=== PATIENT | male | born 1985 | race Caucasian/White ===

== ENCOUNTER 2021-08-04 12:16 | Emergency (ER) | payer OTHER, SELFPAY ==
--- NOTE | 2021-08-04 12:20 | ED.URI ---
HPI - URI/Sore Throat General Chief Complaint: Upper Respiratory Infection Stated Complaint: sore throat/fatigue/nasal congestion/cough Time Seen by Provider: 08/04/21 12:20 Source: patient and RN notes reviewed History of Present Illness HPI Narrative: Patient is a 36-year-old male who presents the urgent care with complaints of sore throat, fatigue, nasal congestion and cough. Patient states that started approximately 2 to 3 days ago and he has been taking ibuprofen for his symptoms. Patient states his daughter is also been symptomatic over the last couple days and is following up with her frame stripper today. Patient has been vaccinated for Covid and denies of any known exposures. Denies any fever, chills, nausea, vomiting. No other acute complaints. No acute distress noted. Patient aware of the plan of care. Some parts of this dictation were generated by voice recognition software and may contain typographical and/or grammatical inaccuracies. Related Data Allergies Allergy/AdvReac Type Severity Reaction Status Date / Time No Known Allergies Allergy Mild Verified 05/08/21 11:32 citalopram Allergy Unknown decrease Verified 05/08/21 11:32 energy/motivation Review of Systems Review of Systems: CONSTITUTIONAL: Denies fever, chills, or sweats. Reports of fatigue EYES: Denies visual changes, redness, or discharge. ENT: Reports of nasal congestion, sore throat CARDIOVASCULAR: Denies chest pain, palpitations, or edema. RESPIRATORY: Reports of dry cough without dyspnea GASTROINTESTINAL: Denies abdominal pain, nausea, vomiting, or diarrhea. GENITOURINARY: Denies dysuria or hematuria. SKIN: Denies rash or itching. MUSCULOSKELETAL: Denies back pain, joint pain, or myalgia. NEUROLOGIC: Denies headache, numbness, or weakness. All other systems reviewed are negative, except as documented in HPI. PMFSH Social History Social History Smoking status: Never smoker Alcohol intake: current Comments At the time of my signature, I reviewed and agree with the nursing past medical, surgical, social, and family history. There is no relevant family history pertinent to the patient complaint. Exam Narrative: GENERAL: This is a well-nourished, well-developed patient, in no apparent distress. HEAD: normocephalic, atraumatic. EYES: PERRL. Sclera clear/white. Vision is grossly intact. EARS: External ears normal, auditory canals clear and without drainage, TMs normal without perforation. Hearing grossly intact. NOSE: External nose normal with no obvious nasal discharge, nares without redness, clear rhinorrhea. THROAT: Mucous membranes moist, mild erythema noted posterior oropharynx without exudate or ulceration. Moderate postnasal drainage. NECK: Neck supple, non-tender without lymphadenopathy CARDIOVASCULAR: Regular rate and rhythm without murmurs, gallops, or rubs. RESPIRATORY: Clear to auscultation. Breath sounds equal bilaterally. No wheezes, rales, or rhonchi. SKIN: warm, intact with no suspicious lesions or rash, good texture and turgor. NEURO: awake, alert, and oriented to person, place and time. There were no obvious focal neurologic abnormalities. EXTREMITIES: No clubbing, cyanosis, or edema. Course Vital Signs Vital signs: Vital Signs Temperature 97.7 F 08/04/21 12:26 Pulse Rate 75 08/04/21 12:26 Respiratory Rate 16 08/04/21 12:26 Blood Pressure 128/77 08/04/21 12:26 Pulse Oximetry 100 08/04/21 12:26 Temperature 97.7 F 08/04/21 12:26 Pulse Rate 75 08/04/21 12:26 Respiratory Rate 16 08/04/21 12:26 Blood Pressure 128/77 08/04/21 12:26 Pulse Oximetry 100 08/04/21 12:26 Reviewed MDM - URI/Sore Throat MDM Narrative Medical decision making narrative: Reviewed lab results with the patient. He is aware that strep swab was negative. Educated patient on culture and we will call within 72 hours if culture is positive and antibiotics are neces
[2021-08-04 12:26] VITALS: BP 128/77; PULSE 75; RESP 16; TEMP 36.5; O2SAT 100
== END 2021-08-04 12:54 | disposition home or self-care (01) ==
PROVIDERS: Emergency Provider Nurse Practitioner Family; PCP Family Medicine
DX: J06.9 Acute upper respiratory infection, unspecified (principal); Z20.822 Contact with and (suspected) exposure to COVID-19
CPT/HCPCS: 87081; 87880; 99213; G0463

== ENCOUNTER → 2021-08-05 04:47 | Outpatient (CLI) | payer OTHER, SELFPAY ==
[2021-08-06 01:26] LABS: SARS-CoV-2 RNA PCR Negative
== END ==
PROVIDERS: PCP Family Medicine; Visit Provider Nurse Practitioner Family
DX: J06.9 Acute upper respiratory infection, unspecified (principal); Z20.822 Contact with and (suspected) exposure to COVID-19
CPT/HCPCS: C9803; U0003; U0005

== ENCOUNTER → 2021-08-16 01:12 | Outpatient (CLI) | payer OTHER, SELFPAY ==
[2021-08-16 18:06] LABS: SARS-CoV-2 RNA PCR Negative
== END ==
PROVIDERS: PCP Family Medicine; Visit Provider Physician Assistant
DX: R68.89 Other general symptoms and signs (principal); Z20.822 Contact with and (suspected) exposure to COVID-19
CPT/HCPCS: C9803; U0003; U0005

== ENCOUNTER → 2021-10-10 10:54 | Outpatient (CLI) | payer OTHER, SELFPAY ==
--- NOTE | ~2021-10-10 | XR_ITS ---
EXAMINATION: XR thoracic spine 3V DATE: 10/10/2021 12:09 INDICATION: Dorsalgia, unspecified. TECHNIQUE: 3 views of thoracic spine standing were obtained. COMPARISON: None. FINDINGS: Bone alignment is normal. Vertebral body heights are normal. Intervertebral disc heights ar e normal. There are endplate osteophytes at multiple levels. IMPRESSION: 1. Mild thoracic spondylosis. Reviewed, dictated and finalized at location A. [employer]
--- NOTE | ~2021-10-10 | XR_ITS ---
XR lumbar spine 2-3V 10/10/2021 12:09 Indication: Back pain. Procedure: 3 views lumbar spine Comparison: No prior studies for comparison. Findings: No fracture, subluxation or dislocation. Mild levocurvature of the lumbar spine. Pedicles i ntact. Sacral foramen are symmetric. No evidence for spondylolisthesis. Impression: 1: Mild levocurvature of the lumbar spine. Reviewed, dictated and finalized at location A. [employer]CH[employer]ICIAN Impression: 1: Mild levocurvature of the lumbar spine.
== END ==
PROVIDERS: PCP Family Medicine; Visit Provider Physician Assistant
DX: M54.9 Dorsalgia, unspecified (principal); M47.894 Other spondylosis, thoracic region
CPT/HCPCS: 72072; 72100

== ENCOUNTER 2022-06-18 11:26 | Emergency (ER) | payer OTHER, SELFPAY ==
--- NOTE | ~2022-06-18 | XR_ITS ---
EXAMINATION: XR knee LT min 4V DATE: 06/18/2022 11:56 INDICATION: Left knee injury and pain. TECHNIQUE: 4 views of left knee were obtained. COMPARISON: None. FINDINGS: Bone alignment is normal. No fracture. There is mild osteoarthritis of patellofemoral naomi rtment characterized by a tiny marginal osteophyte. No knee joint effusion. IMPRESSION: 1. Mild left knee osteoarthritis. Reviewed, dictated and finalized at location A.
--- NOTE | 2022-06-18 11:29 | ED.LOWEXIN ---
HPI - Extremity Injury (Lower) General Stated Complaint: xray lt knee Time Seen by Provider: 06/18/22 11:59 Source: patient and RN notes reviewed Mode of arrival: ambulatory Limitations: no limitations History of Present Illness HPI Narrative: 37-year-old male presents with concern for left knee pain. He reports approximately 3 weeks ago he was playing softball when he fell and landed on the front of the knee on a hard surface. [place] to see a doctor there, but did not have an x-ray, and since then has been using naproxen. He reports sharp pain when he kneels on the knee. He reports throughout the day the knee continues to get swollen. He reports weightbearing does not necessarily increase the pain. MD complaint: knee injury Related Data Home Medications Medication Instructions Recorded Confirmed acetaminophen 500 mg tablet 500 mg PO Q6H PRN Pain 06/18/22 06/18/22 (Tylenol Extra Strength) naproxen 500 mg tablet 500 mg PO BID 06/18/22 06/18/22 Allergies Allergy/AdvReac Type Severity Reaction Status Date / Time citalopram Allergy Unknown decrease Verified 06/18/22 11:34 energy/motivation Review of Systems Review of Systems: CONSTITUTIONAL: Denies malaise, chills, sweats, or fever. SKIN: Denies rash or itching, open skin, laceration, abrasion, redness, warmth MUSCULOSKELETAL: Reports left knee pain and swelling that worsens throughout the day NEUROLOGIC: Denies numbness, weakness All systems reviewed & are unremarkable except as noted in HPI and below PMFSH Social History Social History Smoking status: Never smoker Alcohol intake: current Comments At time of signature, agree with nursing past medical, surgical, social and family history. There is no relevant family history pertinent to the presenting complaint Exam Narrative: GENERAL: Well-appearing, well-nourished, and in no acute distress. HEAD: Normocephalic, atraumatic. EYES: PERRLA, conjunctivae clear NECK: Supple. CHEST: Speaks in full sentences. No respiratory distress. HEART: Regular rate and rhythm. Normal and equal peripheral pulses. EXTREMITIES: Left knee has normal strength and sensation, grossly normal range of motion. Very mild anterior edema, no erythema, warmth, or ecchymosis. 5/5 strength with knee flexion and extension. Normal sensation with sensitivity to light touch and pain. Anterior tenderness. No open wounds, no skin tenting, no devitalized tissue or atrophy, no trophic changes, no obvious deformity, alignment normal, nearby joints and structures intact. Distal pulses palpable and equal bilaterally, skin warm, dry, pink. Capillary refill less than 3 seconds. Lever test negative SKIN: Warm, dry, no rash. NEURO: Alert and oriented x3. PSYCH: Normal mood and affect Course Course Emergency Course: Patient is aware of diagnosis, understands and agrees to treatment plan. Anticipatory guidance given. Patient agrees to follow-up as directed and is aware of reasons to seek care at the emergency department. Portions of this record may have been created with voice recognition software Level of Care: Express Care Visit Vital Signs Vital signs: Reviewed. MDM - Extremity Injury (Lower) MDM Narrative Medical decision making narrative: Patients injury and pain is consistent with musculoskeletal etiology. No signs of neurological or vascular compromise on exam. Compartments and tissues are soft without signs of compartment syndrome. Pain is felt appropriate for further evaluation on an outpatient basis. Imaging Data My impression: Images reviewed, interpreted by radiologist, agree, see report. Radiologist's impression: EXAMINATION: XR knee LT min 4V DATE: 06/18/2022 11:56 INDICATION: Left knee injury and pain. TECHNIQUE: 4 views of left knee were obtained. COMPARISON: None. FINDINGS: Bone alignment is normal. No fracture. There i
[2022-06-18 11:36] VITALS: BP 122/73; PULSE 64; RESP 20; TEMP 37.1; O2SAT 99
== END 2022-06-18 12:27 | disposition home or self-care (01) ==
PROVIDERS: Emergency Provider Nurse Practitioner
DX: S89.92XA Unspecified injury of left lower leg, initial encounter (principal); W19.XXXA Unspecified fall, initial encounter; Y93.64 Activity, baseball
CPT/HCPCS: 73564; 99213; G0463

== ENCOUNTER 2025-06-01 08:21 | Outpatient (CLI) | payer OTHER, SELFPAY ==
--- OUTSIDE RECORDS SUMMARY | 2025-06-01 08:23 | XMS_ITS | Clinical Summary ---
Author Organization [facility] Address [address] [place] [address] Care Team Providers Care Identification Officer Name Role Phone No, Physician Primary Care Provider [phone] Allergies No known active allergies Social History Tobacco Use Types Packs/Day Years Used Date Smoking Tobacco: Never Assessed Personal Safety Answer Date Recorded Have you ever been in or are you currently in a harmful physical or emotional relationship or is someone making you feel afraid or unsafe? Denies 01/26/2025 Sex and Gender Information Value Date Recorded Sex Assigned at Not on file Legal Sex Male 10:59 AM CDT Gender Identity Not on file Sexual Orientation Not on file Last Filed Vital Signs Vital Sign Reading Time Taken Comments Blood Pressure 122/63 01/27/2025 1:00 AM CDT Pulse 65 01/27/2025 1:00 AM CDT Temperature 37.1 C (98.7 F) 01/26/2025 11:46 PM CDT Respiratory Rate 22 01/26/2025 9:06 PM CDT Oxygen Saturation 96% 01/27/2025 1:00 AM CDT Inhaled Oxygen Concentration - - Weight 102.1 kg (225 lb) 01/26/2025 9:06 PM CDT Height 188 cm (6' 2) 01/26/2025 9:06 PM CDT Body Mass Index 28.89 01/26/2025 9:06 PM CDT Plan of Treatment Health Maintenance Due Date Last Done Comments Depression Screening 1986 Hepatitis C Screening 1986 Varicella Vaccines (1 of 2 - 13+ 2-dose series) 1999 Hepatitis B Screening 2004 Regular Well Visit/Exam 18-64 2004 HPV Vaccines (1 - 3-dose SCD M series) 2013 Influenza Vaccine (#1) 2025 DTaP/Tdap/Td Vaccine (2 - Td or Tdap) 02/23/2027 02/23/2017, 05/05/2000 Pneumococcal vaccine <65 Aged Out No longer eligible based on patient's age to complete this topic Insurance WORKERS COMPENSATION GENERIC WORK[employer] GENERIC Care Teams Identification Officer Relationship Specialty Start Date End Date No, Physician PCP - General 01/27/25
--- OUTSIDE RECORDS SUMMARY | 2025-06-01 08:23 | XMS_ITS | Referral Summary ---
Author Organization [facility] Address [address] [place] [address] Care Team Providers Care Web Assistant Name Role Phone No, Physician Primary Care Provider [phone] Allergies No known active allergies Social History [...] 01/26/2025 9:06 PM CDT Plan of Treatment Not on file Insurance WORKERS COMPENSATION GENERIC * Guarantor: [facility] Account Type Relation to Patient Date of Phone Billing Address Workers Comp 1985 [address] [place] [address] WORKERS COMPENSATION GENERIC Care Teams Web Assistant Relationship Specialty Start Date End Date No, Physician PCP - General 01/27/25
--- OUTSIDE RECORDS SUMMARY | 2025-06-01 08:23 | XMS_ITS | Continuity of Care Document ---
Author Name [facility] Organization [facility] Care Team Providers Care Molding Utility Worker Name Role Phone [facility] Unavailable Unavailable Problems Combined list of problems from Department of Defense and Veterans Affairs facilities. It does not include entries that were removed or entered in error. Problem Status Onset Date Problem Type Date of Resolution Comments Source Observation of other Suspected Mental Condition Active Condition [facility] visit for: screening exam pulmonary tuberculosis Inactive Condition [facility] ALCOHOL ABUSE Active Condition [facility] NICOTINE DEPENDENCE - CONTINUOUS Active Condition [facility] Patient Education Dietary Changing Eating Habits Inactive Condition [facility] visit for: services physical Inactive Condition DoD NO PSYCHIATRIC DIAGNOSIS OR CONDITION ON AXIS I Inactive Condition [facility] Observation For Suspected Condition Inactive Condition DoD Allergies, Adverse Reactions, Alerts Combined list of allergies from Department of Defense and Veterans Affairs facilities. It does not include entries that were removed or entered in error. Substance Category Reaction Severity Reaction type Status Date Reported Comments Source NO OUTPUT FOR NCID [id number] Drug allergy (disorder) active 11/25/2006 DoD Immunizations Combined list of available immunizations from the Department of Defense and Veterans Affairs facilities. Immunization Series Date Given Administered By Site Reaction Lot Number CVX Code Drug Managing Principal Status Comments Source influenza virus vaccine, inactivated 2022 CHEL Patel 88 complet ed influenza virus vaccine, inactivat ed 10/09/23 Recorded No Facilit y Access influenza, injectable, quadrivalent- pf 2021 CHEL Patel [id number] complet ed Result Comment: Route: Unknown Manufactu rer: OTH ([employer]) No Facilit y Access influenza, injectable, quadrivalent- pf 2020 [id number] 150 GlaxoSmithK[employer] ne complet ed influenza , injectabl e, quadrival ent-pf 10/27/21 Given Ambulat ory Pharmac y tetanus, diphtheria, acellular pertu is 2020 [id number] 115 [employer] ne complet ed tetanus, diphtheri a, acellular pertussis 10/27/21 Given Ambulat ory Pharmac y tetanus, diphtheria, acellular pertu is 2020 [id number] 115 [employer]Smith[employer] complet ed tetanus, diphtheri a, acellular pertussis 10/27/21 Given Ambulat ory Pharmac y influenza, injectable, quadrivalent- pf 2020 [id number] 150 Gl[employer]oSmithK[employer] ne complet ed influenza , injectabl e, quadrival ent-pf 10/27/21 Given Ambulat ory Pharmac y tuberculin purified protein derivative 2020 CHEL Patel [id number] 96 complet ed Result Comment: Route: Unknown Manufactu rer: OTH (PMC) No Facilit y Access varicella virus vaccine 0 2020 21 () Not Given varicella virus vaccine DoD tetanus toxoid, reduced diphtheria toxoid, and acellular pertu is vaccine, adsorbed 1 2020 [id number] 115 SmithKline (SKB) complet ed tetanus toxoid, reduced diphtheri a toxoid, and acellular pertussis vaccine, adsorbed DoD Influenza, injectable, quadrivalent, preservative free 1 2020 [id number] 150 [employer]Kline (SKB) complet ed Influenza , injectabl e, quadrival ent, preservat anusha free DoD COVID Vaccine Moderna 2020 [id number] 207 complet ed COVID Vaccine Moderna 01/12/21 Given Ambulat ory Pharmac y COVID Vaccine Moderna 2020 [id number] 207 complet ed COVID Vaccine Moderna 01/12/21 Given Ambulat ory Pharmac y SARS-COV-2 (COVID-19) vaccine, mRNA, spike protein, LNP, preservative free, 100 mcg or 50 mcg dose 2 2020 [id number] 207 Moderna [employer] (MOD) complet ed SARS-COV- 2 (COVID-19 ) vaccine, mRNA, spike protein, LNP, preservat anusha free, 100 mcg or 50 mcg dose DoD COVID Vaccine Moderna 2020 [id number] 207 complet ed COVID Vaccine Moderna 12/09/20 Given Ambulat ory Pharmac y COVID Vaccine Moderna 2020 [id number] 207 complet ed COVID Vaccine Moderna 12/09/20 Given Ambulat ory Pharmac y SARS-COV-2 (COVID-19) vaccine, mRNA, spike protein, LNP, preservative free, 100 mcg or 50 mcg dose 1 2020 [id number] 207 Moderna [employer] (MOD) complet ed SARS-COV- 2 (COVID-19 ) vaccine, mRNA, spike protein, LNP, preservat anusha free, 100 mcg or 50 mcg dose DoD INFLUENZA, UNSPECIFIED FORMULATION 2015 88 complet ed received flu vacc from his primary physician [facility] influenza, live, intranasal,qu adrivalent 2013 UNK 149 Unknown complet ed influenza , live, intranasa l,quadriv alent 10/13/14 Given Ambulat ory Pharmac y influenza, live, intranasal,qu adrivalent 2013 UNK 149 Unknown complet ed influenza , live, intranasa l,quadriv alent 10/13/14 Given Ambulat ory Pharmac y influenza, live, intranasal, quadrivalent 0 2013 UNK 149 Unknown (UNK) comple t ed influenza , live, intranasa l, quadrival ent DoD influenza, injectable, quadrivalent- pf 2013 [id number] 150 Unknown complet ed influenza , injectabl e, quadrival ent-pf 11/19/13 Given Ambulat ory Pharmac y influenza, injectable, quadrivalent- pf 2013 [id number] 150 Unknown complet ed influenza , injectabl e, quadrival ent-pf 11/19/13 Given Ambulat ory Pharmac y Influenza, injectable, quadrivalent, preservative free 0 2013 [id number] 150 Unknown (UNK) comple t ed Influenza , injectabl e, quadrival ent, preservat anusha free DoD INFLUENZA, UNSPECIFIED FORMULATION 2012 DUSTY GALINDO TIS L 89 complet ed [facility] Novel influenza-H1N 1-09, injectable 2009 UNK 127 complet ed Novel influenza -S0H6-86, injectabl e 01/12/10 Given Ambulat ory Pharmac y Novel influenza-H1N 1-09, injectable 2009 UNK 127 complet ed Novel influenza -Q8P1-77, injectabl e 01/12/10 Given Ambulat ory Pharmac y Novel influenza-H1N 1-09, injectable 0 2009 UNK 127 (AG) complet ed Novel influenza -E0W3-14, injectabl e DoD influenza virus vaccine, live 2008 UNK 111 Unknown complet ed influenza virus vaccine, live 10/13/09 Given Ambulat ory Pharmac y influenza virus vaccine, live 2008 UNK 111 Unknown complet ed influenza virus vaccine, live 10/13/09 Given Ambulat ory Pharmac y influenza virus vaccine, live, attenuated, for intranasal use 0 2008 UNK 111 Unknown (UNK) comple t ed influenza virus vaccine, live, attenuate d, for intranasa l use DoD influenza virus vaccine,split 2007 UNK 15 Unknown complet ed influenza virus vaccine,s plit 10/28/08 Given Ambulat ory Pharmac y influenza virus vaccine,split 2007 UNK 15 Unknown complet ed influenza virus vaccine,s plit 10/28/08 Given Ambulat ory Pharmac y influenza virus vaccine, split virus (incl. purified surface antigen)-reti red CODE 0 2007 UNK 15 Unknown (UNK) comple t ed influenza virus vaccine, split virus (incl. purified surface antigen)- retired CODE DoD influenza virus vaccine, live 2006 [id number] 111 Unknown complet ed influenza virus vaccine, live 09/25/07 Given Ambulat ory Pharmac y influenza virus vaccine, live 2006 [id number] 111 Unknown complet ed influenza virus vaccine, live 09/25/07 Given Ambulat ory Pharmac y influenza virus vaccine, live, attenuated, for intranasal use 0 2006 [id number] 111 Unknown (UNK) comple t ed influenza virus vaccine, live, attenuate d, for intranasa l use DoD hepatitis A-hepatitis B vaccine 2006 UNK 104 Unknown complet ed hepatitis A-hepatit is B vaccine 02/27/07 Given Ambulat ory Pharmac y hepatitis A-hepatitis B vaccine 2006 UNK 104 Unknown complet ed hepatitis A-hepatit is B vaccine 02/27/07 Given Ambulat ory Pharmac y hepatitis A and hepatitis B vaccine 3 2006 UNK 104 Unknown (UNK) comple t ed hepatitis A and hepatitis B vaccine DoD tuberculin purified protein derivative 2005 zzLef t Arm [id number] 96 [facility] complet ed tuberculi n purified protein derivativ e 09/13/06 Given Ambulat ory Pharmac y tuberculin skin test; purified protein derivative solution, intradermal 1 2005 [place] L [address]4969 96 [place] (PD) complet ed tuberculi n skin test; purified protein derivativ e solution, intraderm al DoD influenza virus vaccine, unspecified 2004 [id number] 88 [employer] comple t ed influenza virus vaccine, unspecifi ed 09/08/05 Given Ambulat ory Pharmac y influenza virus vaccine, unspecified 2004 [id number] 88 [employer] comple t ed influenza virus vaccine, unspecifi ed 09/08/05 Given Ambulat ory Pharmac y influenza virus vaccine, unspecified formulation 1 2004 [id number] 88 [employer] (MED) complet ed influenza virus vaccine, unspecifi ed formulati on DoD hepatitis A-hepatitis B vaccine 2004 [id number] 0BA 104 Unknown complet ed hepatitis A-hepatit is B vaccine 07/08/05 Given Ambulat ory Pharmac y yellow fever vaccine 2004 [id number] 37 Unknown complet ed yellow fever vaccine 07/08/05 Given Ambulat ory Pharmac y yellow fever vaccine 2004 [id number] 37 Unknown complet ed yellow fever vaccine 07/08/05 Given Ambulat ory Pharmac y hepatitis A-hepatitis B vaccine 2004 [id number] 0BA 104 Unknown complet ed hepatitis A-hepatit is B vaccine 07/08/05 Given Ambulat ory Pharmac y yellow fever vaccine 1 2004 [id number] 37 Other (OTH) complet ed yellow fever vaccine DoD hepatitis A and hepatitis B vaccine 2 2004 [id number] 0BA 104 Other (OTH) complet ed hepatitis A and hepatitis B vaccine DoD hepatitis A-hepatitis B vaccine 2004 [id number] 0AA 104 Unknown complet ed hepatitis A-hepatit is B vaccine 06/05/05 Given Ambulat ory Pharmac y tetanus-dipht h toxoids (Td) adult/adol 2004 [id number] 09 Unknown complet ed tetanus-d iphth toxoids (Td) adult/ado l 06/05/05 Given Ambulat ory Pharmac y meningococcal polysaccharid e (MPSV4) 2004 [id number] 32 Unknown complet ed meningoco ccal polysacch aride (MPSV4) 06/05/05 Given Ambulat ory Pharmac y poliovirus vaccine, inactivated 2004 A2452-7 10 Unknown complet ed polioviru s vaccine, inactivat ed 06/05/05 Given Ambulat ory Pharmac y measles/mumps /rubella virus vaccine 2004 [id number] 03 [employer] complet ed measles/m umps/rube lla virus vaccine 06/05/05 Given Ambulat ory Pharmac y poliovirus vaccine, inactivated 2004 [id number] 10 Unknown complet ed polioviru s vaccine, inactivat ed 06/05/05 Given Ambulat ory Pharmac y hepatitis A-hepatitis B vaccine 2004 [id number] 0AA 104 Unknown complet ed hepatitis A-hepatit is B vaccine 06/05/05 Given Ambulat ory Pharmac y tetanus-dipht h toxoids (Td) adult/adol 2004 [id number] 09 Unknown complet ed tetanus-d iphth toxoids (Td) adult/ado l 06/05/05 Given Ambulat ory Pharmac y measles/mumps /rubella virus vaccine 2004 [id number] 03 [employer] complet ed measles/m umps/rube lla virus vaccine 06/05/05 Given Ambulat ory Pharmac y meningococcal polysaccharid e (MPSV4) 2004 [id number] 32 Unknown complet ed meningoco ccal polysacch aride (MPSV4) 06/05/05 Given Ambulat ory Pharmac y measles, mumps and rubella virus vaccine 1 2004 [id number] 03 Merck (MSD) complet ed measles, mumps and rubella virus vaccine DoD tetanus and diphtheria toxoids, adsorbed, preservative free, for adult use (2 Lf of tetanus toxoid and 2 Lf of diphtheria toxoid) 1 2004 [id number] 09 Other (OTH) complet ed tetanus and diphtheri a toxoids, adsorbed, preservat anusha free, for adult use (2 Lf of tetanus toxoid and 2 Lf of diphtheri a toxoid) DoD poliovirus vaccine, inactivated 1 2004 [id number] 2 10 Other (OTH) complet ed polioviru s vaccine, inactivat ed DoD meningococcal polysaccharid e vaccine (MPSV4) 1 2004 [id number] 32 Other (OTH) complet ed meningoco ccal polysacch aride vaccine (MPSV4) DoD hepatitis A and hepatitis B vaccine 1 2004 [id number] 0AA 104 Other (OTH) complet ed hepatitis A and hepatitis B vaccine DoD Results Combined list of recent chemistry, hematology and other laboratory results from Department of Defense and Veterans Affairs, ranging from 15 months to all on record, depending upon the facility. Order Name Results Value Reference Range Date Interpretation Specimen Comments Source Infectiou s Disease HIV-1/O/2 Non-Reac tive 1 (12/10/23 1:31 PM) 12/10 N Interpretiv e Data: INTERPRETAT ION: This method is a screening procedure for the detection of HIV p24 Antigen and Antibodies to HIV-1, including Group O, and/or HIV-2. NON-REACTIV E: HIV-1 antigen and HIV-1 / HIV-2 antibodies were not detected. No laboratory evidence of HIV infection. A negative test result does not exclude the possibility of exposure to or infection with HIV. HIV antibodies and/or p24 antigen may be undetectabl e in some stages of the infection and in some clinical conditions. If acute HIV infection is suspected, consider submitting another specimen to a reference laboratory for HIV-1 RNA. SCREEN REACTIVE - CONFIRMATIO N TO FOLLOW: Possible presence of HIV-1antibo dies, HIV-2 antibodies and/or HIV-1 p24 antigen. Specimen will reflex to the confirmatio n testing that fulfills the Center for Disease Control and Prevention' s HIV diagnostic algorithm. Refer to [facility] Lab Guide for additional information : [email or web address] x Testing performed by Ernie chen [address] [facility] [facility] EP[facility] Miscellan eous Sendouts Repository Sample Received (12/10/23 1:31 PM) 12/10 N [address] [facility] Encounters Combined list of: 1) Encounters from Department of Veterans Affairs facilities going backup to the last 18 months, not all VA inpatient encounters are included; 2) Encounters from the Department of Defense facilities going backup to 280 months. Location Location Details Encounter Type Encounter Number Reason For Visit Attending Provider ADM Date DC Date Status Disposition Source [facility] OUTPATIENT [id number] KAREEM DANIEL 04/07 Released w/o Limitations [facility]) [facility] [id number] DENNYS Billings 04/09 Released w/o Limitations [facility]) OUTPATIENT [id number] KAREEM DANIEL 09/06 Released w/o Limitations [facility] Gustafson(Sub ase Immunizat ions) OUTPATIENT [id number] ppd give HERMINIA SAEED 09/13 Released w/o Limitations [facility] Immun[facility]) [facility](Sub ase [facility]atio [facility] - [facility]) OUTPATIENT [id number] seps LEIGHANN SANTANA 09/21 Released w/o Limitations [facility] - [facility]) [facility]) OUTPATIENT [id number] KAREEM DANIEL 09/27 Released w/o Limitations [facility] OUTPATIENT [id number] KAREEM DANIEL 10/11 Released w/o Limitations [facility] [id number] [facility] Care Not Rendered [id number] RAMILA MEANS 01/01 Discharge Disposition: Home or Self Care [id number] [facility] [id number] [id number] ALISA PUENTERGAJESS 01/06 Discharge Disposition: Home or Self Care [id number] [facility] Procedures Combined list of: 1) Procedures from Department of Veterans Affairs facilities going back up to thelast 18 months, not all VA non-surgical procedures are included; 2) All procedures from the Department of Defense facilities. Procedure Procedure Type Code Date Perfomer Casie Recinos e No data available for this section Ambulato ry Pharmacy Behavioral health counseling and therapy, per 15 minutes 11/25/19 07 FATMATA FISCHER Alcohol and/or drug services; group counseling by a clinician 11/15/19 07 SETH DENNIS Alcohol and/or drug services; group counseling by a clinician 10/25/20 06 FATMATA FISCHER Skin Test Anergy Tuberculin Intradermal Skin Test Anergy Tuberculin Intradermal [id number] 09/13/20 06 [facility] Immunization Administration One Vaccine Immunization Administration One Vaccine 91395 09/13/20 06 [place] VILL[facility] Alcohol and/or drug services; group counseling by a clinician 08/30/20 06 FATMATA FISCHER Alcohol and/or drug services; group counseling by a clinician 08/20/20 06 FATMATA FISCHER Alcohol and/or drug services; group counseling by a clinician 06/25/20 06 FATMATA FISCHER Alcohol and/or drug services; group counseling by a clinician 06/09/20 06 FATMATA FISCHER Alcohol and/or drug services; group counseling by a clinician 05/18/20 06 FATMATA FISCHER Alcohol and/or drug services; intensive outpatient (treatment program that operates at least 3 hours/day and at least 3 days/week and is based on an individualized treatment plan), including a e ment, counseling; crisis intervention, and activity therapies or education 04/26/20 06 DENNYS COOLEY Behavioral health counseling and therapy, per 15 minutes 04/26/20 06 DENNYS COOLEY Alcohol and/or drug services; case management 04/26/20 06 DENNYS COOLEY Alcohol and/or drug services; group counseling by a clinician 04/26/20 06 DENNYS COOLEY Behavioral health counseling and therapy, per 15 minutes 04/23/20 06 DENNYS COOLEY Alcohol and/or drug services; case management 04/23/20 06 DENNYS COOLEY Alcohol and/or drug services; group counseling by a clinician 04/23/20 06 DENNYS COOLEY Alcohol and/or drug services; intensive outpatient (treatment program that operates at least 3 hours/day and at least 3 days/week and is based on an individualized treatment plan), including a e ment, counseling; crisis intervention, and activity therapies or education 04/23/20 06 DENNYS COOLEY Alcohol and/or drug services; intensive outpatient (treatment program that operates at least 3 hours/day and at least 3 days/week and is based on an individualized treatment plan), including a e ment, counseling; crisis intervention, and activity therapies or education 04/22/20 06 DENNYS COOLEY Alcohol and/or drug services; case management 04/22/20 06 DENNYS COOLEY Behavioral health counseling and therapy, per 15 minutes 04/22/20 06 DNENYS COOLEY Alcohol and/or drug services; group counseling by a clinician 04/22/20 06 DENNYS COOLEY Alcohol and/or drug services; group counseling by a clinician 04/21/20 06 KENYA JI Psychiatric Evaluation Review of Records and Reports Psychiatric Evaluation Review of Records and Reports [id number] 04/21/20 06 KENYA JI Alcohol and/or drug services; intensive outpatient (treatment program that operates at least 3 hours/day and at least 3 days/week and is based on an individualized treatment plan), including a e ment, counseling; crisis intervention, and activity therapies or education 04/21/20 06 KENYA JI Alcohol and/or drug services; group counseling by a clinician 04/20/20 06 DENNYS COOLEY Behavioral health counseling and therapy, per 15 minutes 04/20/20 06 DENNYS COOLEY Alcohol and/or drug services; group counseling by a clinician 04/19/20 06 DENNYS COOLEY Behavioral health counseling and therapy, per 15 minutes 04/19/20 06 DENNYS COOLEY Behavioral health counseling and therapy, per 15 minutes 04/16/20 06 DENNYS COOLEY Alcohol and/or drug services; group counseling by a clinician 04/16/20 06 DENNYS COOLEY Alcohol and/or drug services; group counseling by a clinician 04/15/20 06 KENYA JI Psychiatric Evaluation Review of Records and Reports Psychiatric Evaluation Review of Records and Reports [id number] 04/15/20 06 KENYA JI Alcohol and/or drug services; intensive outpatient (treatment program that operates at least 3 hours/day and at least 3 days/week and is based on an individualized treatment plan), including a e ment, counseling; crisis intervention, and activity therapies or education 04/15/20 06 KENYA JI Alcohol and/or drug services; intensive outpatient (treatment program that operates at least 3 hours/day and at least 3 days/week and is based on an individualized treatment plan), including a e ment, counseling; crisis intervention, and activity therapies or education 04/14/20 06 DENNYS COOLEY Alcohol and/or drug services; group counseling by a clinician 04/14/20 06 DENNYS COOLEY Behavioral health counseling and therapy, per 15 minutes 04/14/20 06 DENNYS COOLEY Breathalyzer For Blood Alcohol Content Breathalyzer For Blood Alcohol Content [id number] 04/13/[address]Supervised Services Provision Of Educational Supplies -Supervised Services Provision Of Educational Supplies [id number] 04/13/20 06 LLOYD WILKINSON Alcohol and/or drug screening; laboratory analysis of specimens for presence of alcohol and/or drugs 04/13/20 06 LLOYD WILKINSON Psychiatric Evaluation Comprehensive Examination Psychiatric Evaluation Comprehensive Examination [id number] 04/13/20 06 LLOYD WILKINSON Behavioral health counseling and therapy, per 15 minutes 04/12/20 06 DENNYS COOLEY Alcohol and/or drug services; group counseling by a clinician 04/12/20 06 DENNYS COOLEY VARICELLA VIRUS VACCINE (BOONE), LIVE, FOR SUBCUTANEOUS USE 07/08/[address] [facility] ORAL THERMOMETER, REUSABLE, ANY TYPE, EACH 07/01/[address] [facility] ORAL THERMOMETER, REUSABLE, ANY TYPE, EACH 06/26/[address] [facility] ORAL THERMOMETER, REUSABLE, ANY TYPE, EACH 06/22/[address] [facility] ORAL THERMOMETER, REUSABLE, ANY TYPE, EACH 06/17/20 [facility] BUPRENORPHINE IMPLANT, 74.2 MG 06/05/[address] [facility] PHYS/OTH QUALIFIED HEALTH ASH WORKER QUALIFIED,EDUCATIO N,TRAIN,LICENSURE/ REGULATION (WHEN APPLICABLE) EDUC SER RENDERED TO PATS IN A GRP SETTING (EG,,OBESI TY,OR DIABETIC INSTRUCT) 06/05/[address] [facility] SCREENING TEST OF VISUAL ACUITY, QUANTITATIVE, BILATERAL 06/04/[address] [facility] AUDIOMETRIC TESTING OF GROUPS 06/04/[address] [facility] COLLECTION OF VENOUS BLOOD BY VENIPUNCTURE 06/03/[address] [facility] SKIN TEST; TUBERCULOSIS, INTRADERMAL 06/02/[address] [facility] BEHAVIORAL HEALTH COUNSELING AND THERAPY, PER 15 MINUTES 11/25/[address] [facility] ALCOHOL AND/OR DRUG SERVICES; GROUP COUNSELING BY A CLINICIAN 11/15/19 [facility] ALCOHOL AND/OR DRUG SERVICES; GROUP COUNSELING BY A CLINICIAN 10/25/20 [facility] SKIN TEST; TUBERCULOSIS, INTRADERMAL 09/13/20 [facility] ALCOHOL AND/OR DRUG SERVICES; GROUP COUNSELING BY A CLINICIAN 08/30/[address] [facility] ALCOHOL AND/OR DRUG SERVICES; GROUP COUNSELING BY A CLINICIAN 08/20/20 [facility] ALCOHOL AND/OR DRUG SERVICES; GROUP COUNSELING BY A CLINICIAN 06/25/[address] [facility] ALCOHOL AND/OR DRUG SERVICES; GROUP COUNSELING BY A CLINICIAN 06/08/[address] [facility] ALCOHOL AND/OR DRUG SERVICES; GROUP COUNSELING BY A CLINICIAN 05/18/[address] [facility] ALCOHOL AND/OR DRUG SERVICES; CASE MANAGEMENT 04/26/20 [facility] ALCOHOL AND/OR DRUG SERVICES; CASE MANAGEMENT 04/23/20 [facility] ALCOHOL AND/OR DRUG SERVICES; INTENSIVE OUTPATIENT ([place] [employer]GM OPERATES >= 3 HRS/DAY & >= 3 DAYS/WK & IS BASED ON INDIVID TX PLAN),INCL ASSESS,PSYCH TECH;CRI SIS INTERVENTN,& ACT THERAPIES/EDUC 04/22/20 [facility] ALCOHOL AND/OR DRUG SERVICES; GROUP COUNSELING BY A CLINICIAN 04/21/20 [facility] BEHAVIORAL HEALTH COUNSELING AND THERAPY, PER 15 MINUTES 04/20/20 [facility] BEHAVIORAL HEALTH COUNSELING AND THERAPY, PER 15 MINUTES 04/19/20 [facility] BEHAVIORAL HEALTH COUNSELING AND THERAPY, PER 15 MINUTES 04/16/20 [facility] BEHAVIORAL HEALTH COUNSELING AND THERAPY, PER 15 MINUTES 04/15/20 [facility] ALCOHOL AND/OR DRUG SERVICES; GROUP COUNSELING BY A CLINICIAN 04/14/20 [facility] BEHAVIORAL HEALTH COUNSELING AND THERAPY, PER 15 MINUTES 04/13/20 [facility] PSYCHIATRIC DIAGNOSTIC INTERVIEW EXAMINATION 04/13/20 [facility] BEHAVIORAL HEALTH COUNSELING AND THERAPY, PER 15 MINUTES 04/12/20 [facility] ALCOHOL AND/OR DRUG SERVICES; GROUP COUNSELING BY A CLINICIAN 04/08/20 [facility] ALCOHOL AND/OR DRUG SERVICES; GROUP COUNSELING BY A CLINICIAN 04/06/20 [facility] Social History Combined list of available smoking, tobacco, and other social history from Department of Defense and Veterans Affairs facilities. Social History Type Response Date Comment Sourc e Sexual Orientation Ambula tory Pharmacy Gender identity Ambulator y Pharmacy Sex Representation Male (finding) Un known Organization This section is an empty soc ial history section. [employer] Assessment and Plan Combined list of future care activities from [facility] facilities (e.g., assessment and plan notes, appointments, orders, and referrals). Additional future care activities may be listed in the Plan of Care section. Result Assessment and Plan Date Source Assessment and Plan No data available for this section 06/01/2025 Ambulatory Pharmacy Functional Status Combined list of recent functional and cognitive assessments recorded at [facility] Functional Blanchard Measurement (FIM) Scale: 1 = Total Assistance (Subject = 0% +), 2 = Maximal Assistance (Subject = 25% +), 3 = Moderate Assistance (Subject = 50% +), 4 = Minimal Assistance (Subject = 75% +), 5 = Supervision, 6 = Modified Blanchard (Device), 7 = Complete Blanchard (Timely, Safely). Assessment Date/Time Source Assessment Type Assessment Skill Assessment Score Assessment Details No data available for this section
[2025-06-01 13:12] LABS: Hematocrit 47.8 % (42.0-52.0); Hemoglobin 15.6 g/dL (14.0-18.0); Mean Corpuscular HGB Conc 32.6 g/dl (32-36); Mean Corpuscular Hemoglobin 30.1 pg (26-34); Mean Corpuscular Volume 92.3 fl (80-100); Platelet Count Result 266 k/mm3 (150-375); Red Blood Count 5.18 M/mm3 (4.6-6.20); White Blood Count 9.3 K/mm3 (4.5-10.0)
[2025-06-01 13:40] LABS: Alanine Aminotransferase 35 U/L (6-50); Albumin Level 4.3 g/dL (3.5-5.1); Alkaline Phosphatase 63 U/L (38-126); Anion Gap 10 mmol/L (4-12); Aspartate Amino Transferase 80 U/L (17-59); Bilirubin,Total 1.3 mg/dL (0.2-1.3); Blood Urea Nitrogen 16 mg/dL (9-20); Calcium 9.0 mg/dL (8.4-10.2); Carbon Dioxide 24 mmol/L (22-30); Chloride 103 mmol/L (98-107); Cholesterol 134 mg/dL (0-200); Estimated Glomerular Filt Rate > 60; Glucose 85 mg/dL (65-110); HDL Direct 40 mg/dL; Potassium 3.9 mmol/L (3.4-5.0); Sodium 137 mmol/L (137-145); Total Protein 7.5 g/dL (6.3-8.2); Triglycerides 59 mg/dL (<150)
[2025-06-01 14:16] LABS: Prostate Specific Antigen 0.7 ng/mL (< OR = 4.0); Thyroid Stimulating Hormone 0.791 uIU/mL (0.465-4.680)
== END 2025-06-01 08:22 | disposition home or self-care (01) ==
LOC: ANHGOSHLAB 08:21
PROVIDERS: PCP Family Medicine; Visit Provider Family Medicine
DX: E66.9 Obesity, unspecified (principal); Z79.899 Other long term (current) drug therapy; Z12.5 Encounter for screening for malignant neoplasm of prostate
CPT/HCPCS: 36415; 80053; 80061; 84153; 84443; 85027; G0103